=== PATIENT | male | born 1980 | race African-American/Black ===

== ENCOUNTER 2023-01-13 12:33 | Emergency (ER) | payer OTHER, SELFPAY ==
[2023-01-13 12:39] VITALS: BP 146/103; PULSE 70; RESP 16; TEMP 36.3; O2SAT 100
--- NOTE | 2023-01-13 15:22 | PC.NURSE ---
Report received from TA Patrick. Assumed care of patient at this time.
[2023-01-13 15:23] VITALS: BP 131/99; PULSE 62; RESP 16; TEMP 36.3; O2SAT 100
[2023-01-13] MEDS: ERYTHROMYCIN OPHTH OINTMENT 1 GM TUBE 1 APPLIC RIGHT EYE (15:52)
--- NOTE | 2023-01-13 15:54 | ED.GENADULT ---
HPI - General Adult General Chief complaint: Eye Problems Stated complaint: eye pain Time Seen by Provider: 01/13/23 13:39 History of Present Illness HPI narrative: 43-year-old male presented to the emergency department for evaluation of a foreign body sensation in his right eye. 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 Patient states that the eye pain and tearing had worsened. Patient denies any change in vision of the right eye. Related Data Allergies Allergy/AdvReac Type Severity Reaction Status Date / Time No Known Allergies Allergy Verified 01/13/23 15:54 Review of Systems Review of Systems: See HPI All systems reviewed & are unremarkable except as noted in HPI and below Exam Narrative: APPEARANCE: Well appearing, no pain, no distress, well-nourished. HEAD: normocephalic, atraumatic. EYES: Some corneal uptake of fluorescein over right eye. No visualized foreign body NOSE: Normal no drainage RESPIRATORY: Airway patent, respirations nonlabored. Clear to auscultation bilaterally, no rales, rhonchi, wheezing. CARDIOVASCULAR: Regular rate and rhythm without murmurs rubs or gallops. ABDOMINAL: Soft, nontender, nondistended, normal bowel sounds MUSCULOSKELETAL: Moves all extremities. Strength/ROM intact, No edema, No calf tenderness. NEURO: Alert. Cranial nerves II through XII intact. Grossly intact SKIN: Warm, dry. Normal Color Course Course Emergency Course: 43-year-old male with right eye pain. patient did have some diffuse fluorescein uptake in the lower regions of the sclera nothing overlying the pupil of the right eye. Patient was treated with erythromycin ointment. Patient was encouraged of close follow-up with ophthalmology if he has persistent symptoms. Patient was comfortable with the plan for discharge and close follow-up. Vital Signs Vital signs: Vital Signs Temperature 97.3 F L 01/13/23 12:39 Pulse Rate 70 01/13/23 12:39 Respiratory Rate 16 01/13/23 12:39 Blood Pressure 146/103 H 01/13/23 12:39 Pulse Oximetry 100 01/13/23 12:39 Oxygen Delivery Room Air 01/13/23 12:39 Temperature 97.4 F L 01/13/23 15:23 Pulse Rate 62 01/13/23 15:23 Respiratory Rate 16 01/13/23 15:23 Blood Pressure 131/99 H 01/13/23 15:23 Pulse Oximetry 100 01/13/23 15:23 Oxygen Delivery Room Air 01/13/23 12:39 Medical Decision Making Vital Signs Vital Signs: Vital Signs Temperature 97.3 F L 01/13/23 12:39 Pulse Rate 70 01/13/23 12:39 Respiratory Rate 16 01/13/23 12:39 Blood Pressure 146/103 H 01/13/23 12:39 Pulse Oximetry 100 01/13/23 12:39 Oxygen Delivery Room Air 01/13/23 12:39 Temperature 97.4 F L 01/13/23 15:23 Pulse Rate 62 01/13/23 15:23 Respiratory Rate 16 01/13/23 15:23 Blood Pressure 131/99 H 01/13/23 15:23 Pulse Oximetry 100 01/13/23 15:23 Oxygen Delivery Room Air 01/13/23 12:39 Discharge Plan Discharge Clinical Impression: Corneal abrasion Patient Disposition: Home, Self-Care Condition: Stable Instructions: Antibiotic Form, Corneal Abrasion (DC) Additional Instructions: Antibiotic ointment in the eye as directed. Have close follow-up with ophthalmology. If you have any worsening symptoms please call or return to the emergency department. Prescriptions: New erythromycin 5 mg/gram (0.5 %) ointment 1 applic RIGHT EYE DAILY Qty: 3.5 0RF Follow-up/Referrals: [facility] [Outside] PHYSICIAN,WOOL SHEARER [Primary Care Provider] -
== END 2023-01-13 16:14 | disposition home or self-care (01) ==
PROVIDERS: Emergency Provider Emergency Medicine
DX: S05.01XA Injury of conjunctiva and corneal abrasion without foreign body, right eye, initial encounter (principal); X58.XXXA Exposure to other specified factors, initial encounter
CPT/HCPCS: 99283; A9270